=== PATIENT | female | born 1970 | race Caucasian/White ===

== ENCOUNTER 2017-05-08 20:41 | Emergency (ER) | payer OTHER ==
[2017-05-08] MEDS ORDERED: ONDANSETRON ODT 4 MG TAB.RAPDIS ONE (21:04)
[2017-05-08] MEDS ORDERED: NORMAL SALINE 500 ML IV ONE ×2 (21:18→22:16)
[2017-05-08] MEDS ORDERED: ONDANSETRON HCL 4 MG/2 ML VIAL ONE ×2 (21:29→22:16)
[2017-05-08 21:51] LABS: BASOPHIL# 0.1 X 10^3uL (0.0-0.1); BASOPHILS 0.7 % (0.0-2.0); EOSINOPHILS 1.5 % (0.0-6.0); EOSINOPHILS# 0.2 X 10^3uL (0.0-0.4); HEMATOCRIT 40.3 % (36.0-48.0); HEMOGLOBIN 13.7 g/dL (12.0-16.0); LYMPHOCYTES 15.7 % (20.0-40.0); LYMPHOCYTES# 2.1 X 10^3uL (0.8-3.8); MEAN CELL VOLUME 82.1 fL (80.0-100.0); MEAN CORPUS. HGB CONCENTRATION 33.9 g/dL (32.0-36.0); MEAN CORPUSCULAR HEMOGLOBIN 27.9 pg (29.0-35.0); MEAN PLATELET VOLUME 9.4 fL (7.4-10.4); MONOCYTES# 1.1 X 10^3uL (0.2-1.0); NEUTROPHILS 74.1 % (54.0-75.0); NEUTROPHILS# 10.1 X 10^3uL (2.6-6.7); PLATELET COUNT 360 X 10^3uL (130-440); RED CELL DISTRIBUTION WIDTH 13.2 % (11.5-14.5); WHITE BLOOD COUNT 13.6 X 10^3uL (3.9-10.7)
[2017-05-08 22:05] LABS: BLOOD UREA NITROGEN 8 mg/dL (7-17); CALCIUM 9.5 mg/dL (8.4-10.2); CHLORIDE 103 mmol/L (98-107); EST GLOMERULAR FILTRATION RATE > 60 mL/min; GLUCOSE 103 mg/dL (70-100); POTASSIUM 3.4 mmol/L (3.5-5.1); SODIUM 139 mmol/L (137-145)
[2017-05-08] MEDS ORDERED: ONDANSETRON ODT PREPAC 4 MG TAB.RAPDIS PO ONE (23:36)
--- NOTE | 2017-05-08 23:43 | ER NURSING DOCUMENTATION ---
Nurse's Notes [facility] Name:Dior Barrios Age:46 yrs Sex:Female :1970 Arrival Date:05/08/2017 Time:20:39 Bed5 Private MD: Diagnosis:Vomiting - Dehydration-2nd to Altitude Illness Presentation: 05/08 20:51 Presenting complaint: Patient states: shes had nausea since arriving at this altitude 3 bw2 hours ago. Transition of care: patient was not received from another setting of care. 20:51 Acuity: MALENA 3 bw2 20:51 Method Of Arrival: Walk In 2 Triage Assessment: 20:54 General: Appears in no apparent distress. General: Behavior is anxious. Pain: Denies bw2 pain. GI: Reports nausea. Historical: - Allergies: PENICILLINS; Codeine; Sulfa (Sulfonamide Antibiotics); CEPHALOSPORINS; fluoroquinolone; Clindamycin; Doxycycline; Latex; - Tetanus: < 10 years. - Ebola Screening: : Patient negative for fever greater than or equal to 101.5 degrees Fahrenheit, and additional compatible Ebola Virus Disease symptoms. Patient denies exposure to infectious person. Patient denies travel to an Ebola-affected area in the 21 days before illness onset. No symptoms or risks identified at this time. . - Immunization history: Flu Vaccine < 1 year. - Social history: Smoking status: Patient states was never smoker of tobacco. Patient uses. Screenin:51 Infectious Disease Risk None. Abuse screen: Denies threats or abuse. Nutritional bw2 screening: No deficits noted. Assessment: 21:51 See Triage Assessment done by same RN. GI: Abdomen is flat. bw2 Vital Signs: 20:55 BP 169 / 80; Pulse 110; Resp 21 S; Temp 98(O); Pulse Ox 95% on R/A; Weight 90.72 kg; bw2 Pain 0/10; 23:42 BP 140 / 62; Pulse 80; Resp 18; Temp 98; Pulse Ox 96% on R/A; Pain 0/10; bw2 Andre Coma Score: 21:30 Eye Response: spontaneous(4). Verbal Response: oriented(5). Motor Response: obeys cd commands(6). Total: 15. ED Course: 20:39 Patient arrived in ED. em3 20:42 Rupert Clemens MD is Attending Physician. cd 20:51 Laureen Kaplan is Primary Nurse. bw2 20:51 Triage completed. bw2 21:51 Valuables Remains with patient Placed in gown. Bed in low position. multiple drill operator on. bw2 Pulse ox on. NIBP on. 22:02 Inserted peripheral IV: 20 gauge in left antecubital area. bw2 Administered Medications: 20:52 CANCELLED (Physician Discretion): Zofran 4 mg IVP once over 2 mins cd 20:58 Drug: Zofran 4 mg; Route: PO; bw2 22:15 Follow up: Response: No adverse reaction bw2 21:13 Drug: NS 0.9% 1000 ml; Route: IV; Rate: bolus; Site: left antecubital; bw2 22:15 Follow up: IV Status: Completed infusion bw2 21:19 Drug: Zofran 4 mg; Route: IVP; Infused Over: 2 mins; Site: left antecubital; bw2 22:15 Follow up: Response: No adverse reaction bw2 22:02 Drug: NS 0.9% 500 ml; Route: IV; Rate: bolus; Site: left antecubital; bw2 23:40 Follow up: IV Status: Completed infusion bw2 22:02 Drug: Zofran 4 mg; Route: IVP; Infused Over: 2 mins; Site: left antecubital; bw2 22:16 Follow up: Response: Nausea is decreased bw2 23:39 Drug: Zofran 1 tablet; Route: PO; bw2 23:40 Follow up: Response: Pharmacy closed - take home med pack bw2 Point of Care Testing: Urine Dip: 23:41 pH: 7.0; ; Specific [place]: 1.010; Ketones: Negative; Glucose: Negative; Protein: bw2 Negative; Leukocytes: Negative; Nitrite: Negative ; Blood: Negative; Bilirubin: Negative ; Urobilinogen: Normal Outcome: 23:17 Discharge ordered by MD. cd 23:42 Discharged to home ambulatory. bw2 23:42 Condition: good 23:42 Discharge Assessment: Patient awake, alert and oriented x 3. No cognitive and/or functional deficits noted. Patient verbalized understanding of disposition instructions. 23:42 Discharge instructions given to patient, significant other, Instructed on discharge instructions, follow up and referral plans. medication usage, Demonstrated understanding of instructions, medications, Prescriptions given X 1. 23:42 Patient left the ED. bw2 06/26 18:36 Discharge F/U Call: Unable to reach: no answer Signatures: Rupert Clemens MD MD cd Meiklejohn, Eric em3 Hofsess, Rachel rh Wisely, Beth bw2
--- NOTE | 2017-05-08 23:43 | ER PHYSICIAN DOCUMENTATION ---
Physician Documentation [facility] Name:Dior Barrios Age:46 yrs Sex:Female :1970 Arrival Date:05/08/2017 Time:20:39 Bed5 Private MD: Rupert Hudson Disposition: 05/08 23:20 Chart complete. cd Disposition: 05/08/17 23:17 Discharged to Home/Self Care. Impression: Vomiting - Dehydration - 2nd to Altitude Illness. - Condition is Good. - Discharge Instructions: DEHYDRATION (6y-Adult), VOMITING (6y-Adult). - Prescriptions for Zofran 4 mg Oral - take 1 tablet by ORAL route every 6 hours prn nausea or vomiting; 6 tablet. - Medical Reconciliation form form. - Follow up: Private Physician; When: 4- 6 days; Reason: Recheck today's complaints, Continuance of care. - Problem is new. - Symptoms are resolved. - Notes: Drink 2 - 3 quarts of water or Gatorade every day... Stay at this altitude, do not go to higher elevation. TAke Zofran 4mg under tongue every 6 hours for nausea or vomiting... Take Tylenol 975mg by mouth every 6 hours as needed for headache... HPI: 20:45 This 46 yrs old Female presents to ER via Walk In with complaints of Nausea, cd headache, weakness. 20:45 The patient presents to the emergency department with nausea, that is severe, without cd any complaints of abdominal pain. Onset: The symptom(s)/episode began/occurred acutely, 3 hour(s) ago, after arriving to this elevation from [place]. She has had poor PO intake today while travelling. Possible causes: travel, to 8,000 feet elevation from [place] today. The symptoms are aggravated by nothing. The symptoms are alleviated by nothing. Associated signs and symptoms: Pertinent positives: anorexia, nausea, Pertinent negatives: abdominal pain, diarrhea, dysuria, fever, vomiting. Severity of symptoms: At their worst the symptoms were moderate in the emergency department the symptoms are unchanged. The patient has not experienced similar symptoms in the past. Historical: - Allergies: PENICILLINS; Codeine; Sulfa (Sulfonamide Antibiotics); CEPHALOSPORINS; fluoroquinolone; Clindamycin; Doxycycline; Latex; - Tetanus: < 10 years. - Ebola Screening: : Patient negative for fever greater than or equal to 101.5 degrees Fahrenheit, and additional compatible Ebola Virus Disease symptoms. Patient denies exposure to infectious person. Patient denies travel to an Ebola-affected area in the 21 days before illness onset. No symptoms or risks identified at this time. . - Immunization history: Flu Vaccine < 1 year. - Social history: Smoking status: Patient states was never smoker of tobacco. Patient uses. ROS: 05/10 ENT: Negative for injury, pain, epistaxis and discharge. cd Neck: Negative for injury, pain, stiffness and swelling. Cardiovascular: Negative for chest pain, palpitations, edema and pleuritic pain. Respiratory: Negative for shortness of breath, dyspnea on exertion, cough, sputum production, wheezing, hemoptysis and pleuritic chest pain. Back: Negative for injury, pain or muscle spasms. : Negative for injury, bleeding, discharge, dysuria, frequency, urgency and swelling. MS/Extremity: Negative for injury, deformity, edema, calf tenderness, pain or coldness. Skin: Negative for injury, rash, itching and discoloration. 05/10 21:00 Neuro: Negative for headache, weakness, numbness, tingling, and seizure. cd Constitutional: Positive for poor PO intake, Negative for chills, fever. Abdomen/GI: Positive for nausea, anorexia, Negative for abdominal pain, vomiting, diarrhea, hematemesis, black/tarry stool, rectal bleeding. All other systems are negative. Exam: Head/Face: Normocephalic, atraumatic. ENT: Nares patent. No nasal discharge, no septal abnormalities noted. Tympanic membranes are normal and external auditory canals are clear. Oropharynx with no redness, swelling, or masses, exudates, or evidence of obstruction, uvula midline. Mucous membranes dry 05/08 21:30 Neck: Trachea midline, no thyromegaly or masses palpated, and no cervical cd lymphadenopathy. Supple, full range of motion without nuchal rigidity, or vertebral point tenderness. No Meningismus. Back: No spinal tenderness. No costovertebral tenderness. Full range of motion. Skin: Warm, dry with normal turgor. Normal color with no rashes, no lesions, and no evidence of cellulitis. MS/ Extremity: Pulses equal, no cyanosis. Neurovascular intact. Full, normal range of motion. Neuro: Awake and alert, GCS 15, oriented to person, place, time, and situation. Cranial nerves II-XII grossly intact. Motor strength 5/5 in all extremities. Sensory grossly intact. Cerebellar exam normal. Normal gait. Constitutional: The patient appears alert, awake, non-diaphoretic, non-toxic, well developed, well nourished, anxious, obese, in obvious distress, moderately distressed. Cardiovascular: Rate: normal, Rhythm: regular, Pulses: no pulse deficits are appreciated, Heart sounds: normal, Edema: is not appreciated. Respiratory: Exam negative for acute changes, Breath sounds: are normal, clear throughout. Abdomen/GI: Inspection: abdomen appears normal, Bowel sounds: normal, Palpation: abdomen is soft and non-tender, Indicators: Do's sign is negative. Vital Signs: 20:55 BP 169 / 80; Pulse 110; Resp 21 S; Temp 98(O); Pulse Ox 95% on R/A; Weight 90.72 kg; bw2 Pain 0/10; 23:42 BP 140 / 62; Pulse 80; Resp 18; Temp 98; Pulse Ox 96% on R/A; Pain 0/10; bw2 [place] Coma Score: 21:30 Eye Response: spontaneous(4). Verbal Response: oriented(5). Motor Response: obeys cd commands(6). Total: 15. MDM: 20:43 Patient medically screened. cd 21:30 Differential diagnosis: gastritis, Acute Altitude Illness, Dehydration, UTI. cd 21:35 Data reviewed: vital signs, nurses notes, old medical records, and as a result, I will cd continue to observe the patient, administer IV fluids, NS bolus, NS maintenence, and Zofran. Data interpreted: Pulse oximetry: on room air is 96 %. Interpretation: normal. 23:20 Counseling: I had a detailed discussion with the patient and/or guardian regarding: the cd historical points, exam findings, and any diagnostic results supporting the discharge/admit diagnosis, lab results, the need for outpatient follow up, for a recheck, with the patient's primary care provider, to return to the emergency department if symptoms worsen or persist or if there are any questions or concerns that arise at home. Response to treatment: the patient's symptoms have markedly improved after treatment, the patient's condition has returned to base line, patient is well hydrated. and as a result, I will discharge patient. 05/08 21:54 Order name: CBC AUTO DIF, MDIF/RMOR IF IND; Complete Time: 23:15 EDMS 05/08 23:15 Interpretation: Normal Except: WHITE BLOOD COUNT 13.6. 05/08 22:06 Order name: BASIC METABOLIC PANEL; Complete Time: 23:15 EDMS 05/08 23:15 Interpretation: Normal Except: POTASSIUM 3.4; CARBON DIOXIDE 20; Dehydration. 05/08 20:45 Order name: Iv Saline Lock; Complete Time: 21:13 cd Dispensed Medications: 20:52 CANCELLED (Physician Discretion): Zofran 4 mg IVP once over 2 mins cd 20:58 Drug: Zofran 4 mg; Route: PO; bw2 22:15 Follow up: Response: No adverse reaction bw2 21:13 Drug: NS 0.9% 1000 ml; Route: IV; Rate: bolus; Site: left antecubital; bw2 22:15 Follow up: IV Status: Completed infusion bw2 21:19 Drug: Zofran 4 mg; Route: IVP; Infused Over: 2 mins; Site: left antecubital; bw2 22:15 Follow up: Response: No adverse reaction bw2 22:02 Drug: NS 0.9% 500 ml; Route: IV; Rate: bolus; Site: left antecubital; bw2 23:40 Follow up: IV Status: Completed infusion bw2 22:02 Drug: Zofran 4 mg; Route: IVP; Infused Over: 2 mins; Site: left antecubital; bw2 22:16 Follow up: Response: Nausea is decreased bw2 23:39 Drug: Zofran 1 tablet; Route: PO; bw2 23:40 Follow up: Response: Pharmacy closed - take home med pack bw2 Point of Care Testing: Urine Dip: 23:41 pH: 7.0; ; Specific [place]: 1.010; Ketones: Negative; Glucose: Negative; Protein: bw2 Negative; Leukocytes: Negative; Nitrite: Negative ; Blood: Negative; Bilirubin: Negative ; Urobilinogen: Normal Signatures: Rupert Clemens MD MD cd Wisely, Beth bw2
== END 2017-05-08 23:43 | disposition home or self-care (01) ==
LOC: ER 20:41
DX: E86.0 Dehydration (principal); R11.2 Nausea with vomiting, unspecified; R51 Headache; R53.1 Weakness; T70.29XA Other effects of high altitude, initial encounter
CPT/HCPCS: 80048; 85025; 96361; 96374; 96376; 99284; J2405; J7040